=== PATIENT | female | born 1965 | race Caucasian/White ===

== ENCOUNTER → 2020-01-10 | Outpatient (CLI) | payer OTHER ==
[~2020-01-10] MED LIST: FLUO40CA2 PO; HYDR-3622 PO; IBUP-1221 PO; PROP120C50 PO; ROSU40TA PO
== END | disposition home or self-care (01) ==
LOC: CLISVCS 09:30
PROVIDERS: ATTEND Anesthesiology
DX: Z20.828 Contact with and (suspected) exposure to other viral communicable diseases (principal)
CPT/HCPCS: 87635

== ENCOUNTER 2020-01-11 12:48 | Day surgery (SDC) | payer OTHER ==
[~2020-01-11] VITALS: Ht 162.6 cm; Wt 87.9 kg
[2020-01-11 13:39] VITALS: BP 124/84
[2020-01-11] MEDS ORDERED: MIDAZOLAM 1 MG/ML, 2ML ONE (13:41)
[2020-01-11] MEDS ORDERED: FENTANYL PF 250 MCG/5ML ONE (13:41)
[2020-01-11] MEDS ORDERED: PROP120C50 PO (13:59)
[2020-01-11] MEDS ORDERED: IBUP-1221 PO (13:59)
[2020-01-11] MEDS ORDERED: HYDR-3622 PO (13:59)
[2020-01-11] MEDS ORDERED: FLUO40CA2 PO (13:59)
[2020-01-11] MEDS ORDERED: ROSU40TA PO (13:59)
[2020-01-11] MEDS ORDERED: CHLORHEXIDINE 15 ML UDC MM ONE (14:00)
[2020-01-11] MEDS ORDERED: LACTATED RINGERS 1,000 ML IV SCH (14:00)
[2020-01-11] MEDS ORDERED: ROPIvacaine/PF 0.5%, 30 ML ONE (14:14)
[2020-01-11] MEDS ORDERED: CEFAZOLIN 1,000 MG ONE (14:14)
[2020-01-11] MEDS ORDERED: DEXAMETHASONE 4 MG/ML, 1ML ONE (14:14)
[2020-01-11] MEDS ORDERED: PROPOFOL 10 MG/ML, 20ML ONE (14:14)
[2020-01-11] MEDS ORDERED: ONDANSETRON 2MG/ML, 2ML ONE (14:14)
[2020-01-11 14:34] LABS: ALANINE AMINOTRANSFERASE 34 U/L (12-78); ALBUMIN 3.7 g/dL (3.4-5.0); ANION GAP 8 mmol/L (5-15); CALCIUM 9.3 mg/dL (8.5-10.1); CHLORIDE 111 mmol/L (98-107)
[2020-01-11 14:37] LABS: ALKALINE PHOSPHATASE 89 U/L (45-117); BILIRUBIN,TOTAL 0.4 mg/dL (0.2-1.0); CREATININE 0.66 mg/dL (0.55-1.02); TOTAL PROTEIN 7.5 g/dL (6.4-8.2)
[2020-01-11] MEDS ORDERED: EPINEPHRINE 1 MG/ML, 1ML ONE (14:46)
[2020-01-11] MEDS ORDERED: BUPIVACAINE/PF 0.5% ONE (14:46)
[2020-01-11] MEDS ORDERED: HALOPERIDOL 5 MG/ML IV PRN (15:00)
[2020-01-11] MEDS ORDERED: HYDROmorphone 1 MG/ML, 1ML INJ IVPush PRN (15:00)
[2020-01-11] MEDS ORDERED: OXYcodone 5 MG/5 ML ORAL.SOL UDC PO PRN (15:00)
[2020-01-11] MEDS ORDERED: hydrALAzine 20 MG/ML, 1ML IV PRN (15:00)
[2020-01-11] MEDS ORDERED: FENTANYL PF 100 MCG/2ML IV PRN (15:00)
[2020-01-11] MEDS ORDERED: ACETAMINOPHEN 325 MG TABLET PO PRN (15:00)
[2020-01-11] MEDS ORDERED: MEPERIDINE/PF 25MG/0.5ML IVPush PRN (15:00)
[2020-01-11] MEDS ORDERED: morphine SULFATE 10 MG/ML, 1ML IVPush PRN (15:00)
[2020-01-11] MEDS ORDERED: PROMETHAZINE 25 MG/ML, 1ML IVPush PRN (15:00)
[2020-01-11] MEDS ORDERED: LABETALOL 5MG/ML, 20ML IV PRN (15:00)
[2020-01-11] MEDS ORDERED: BUPIVACAINE/EPI 0.5% 1:200K INFIL ONE (15:07)
[2020-01-11] MEDS ORDERED: FENTANYL PF 100 MCG/2ML ONE ×2 (15:31→16:56)
[2020-01-11] MEDS ORDERED: BUPIVACAINE/PF 0.25% ONE (15:46)
[2020-01-11] MEDS ORDERED: PROMETHAZINE 25 MG/ML, 1ML ONE (16:43)
== END 2020-01-11 18:20 | disposition home or self-care (01) ==
LOC: OUT 12:48
PROVIDERS: ATTEND Orthopaedic Surgery
DX: S52.572A Other intraarticular fracture of lower end of left radius, initial encounter for closed fracture (principal); I10 Essential (primary) hypertension; E78.5 Hyperlipidemia, unspecified; Z79.891 Long term (current) use of opiate analgesic; Z79.899 Other long term (current) drug therapy; Z88.2 Allergy status to sulfonamides; W18.39XA Other fall on same level, initial encounter; Y93.89 Activity, other specified; Y92.096 Garden or yard of other non-institutional residence as the place of occurrence of the external cause; Y99.8 Other external cause status
CPT/HCPCS: 25609; 36415; 73100; 80053; C1713; J0171; J0690; J1100; J2250; J2405; J2550; J2704; J2795; J3010; J7120; 76000